=== PATIENT | female | born 1955 | race Caucasian/White ===

== ENCOUNTER → 2016-11-26 | Outpatient (CLI) | payer BC ==
--- NOTE | 2016-11-26 10:22 | US ---
EXAMINATION TYPE: US pelvic complete DATE OF EXAM: 11/26/2016 COMPARISON: NONE CLINICAL HISTORY: R10.2 PELVIC PAIN. Patient states mild discomfort on and off for years, no pain, ma rudy h/o ovarian CA TECHNIQUE: TA Date of LMP: 6+yrs ago EXAM MEASUREMENTS: Uterus: 7.7 x 5.8 x 2.3cm Endometrial Stripe: 0.4cmcm Right Ovary: 1.6 x 1.1 x 1.7cm Left Ovary: 2.1 x 1.3 x 1.4cm 1. Uterus: Anteverted probable 1.3cm left sided fibroid 2. Endometrium: wnl 3. Right Ovary: atrophic,wnl 4. Left Ovary: atrophic,wnl 5. Bilateral Adnexa: wnl 6. Posterior cul-de-sac: wnl IMPRESSION: PROBABLE FIBROID UTERUS.
== END | disposition home or self-care (01) ==
LOC: RADUSWWP 09:31
PROVIDERS: ATTEND Obstetrics & Gynecology
DX: R10.2 Pelvic and perineal pain (principal)
CPT/HCPCS: 76856

== ENCOUNTER 2017-08-22 06:40 | Day surgery (SDC) | payer BC ==
[2017-08-18 11:33] VITALS: BMI 25.7
[~2017-08-22 06:40] MED LIST: LACTATED RINGERS 1,000 ML IV SCH
[2017-08-22 06:59] VITALS: TEMP 97.9
[2017-08-22] MEDS ORDERED: LIDOCAINE 1% 20 ML VIAL (10MG/ML) FOR IV START INTRADERMA ONE (07:08)
[2017-08-22] MEDS ORDERED: PROPOFOL 10 MG/ML 20 ML VIAL IV ONE (07:34)
[2017-08-22] MEDS ORDERED: LIDOCAINE 1% INJ 10MG/ML (20 ML MDV) ONE (07:34)
--- NOTE | 2017-08-22 07:55 | P.GSHP ---
History of Present Illness H&P Date: 08/22/17 Chief Complaint: Screening colonoscopy Is a 62-year-old female referred from Dr. Fitzpatrick. Patient safe for screening colonoscopy. Her last colonoscopy 10 years ago. Past Medical History Past Medical History: No Reported History History of Any Multi-Drug Resistant Organisms: None Reported Past Surgical History: Cholecystectomy, Orthopedic Surgery, Tubal Ligation Additional Past Surgical History / Comment(s): CARPAL TUNNEL, GROWTHS IN THROAT REMOVED. Past Anesthesia/Blood Transfusion Reactions: No Reported Reaction Past Psychological History: No Psychological Hx Reported Smoking Status: Former smoker Past Alcohol Use History: Rare Additional Past Alcohol Use History / Comment(s): QUIT SMOKING 10 YRS AGO. SMOKED 30 + YRS Past Drug Use History: None Reported - Past Family History Mother Family Medical History: Cancer Additional Family Medical History / Comment(s): OVARIAN CANCER Medications and Allergies Home Medications Medication Instructions Recorded Confirmed Type Aspirin/Acetaminophen/Caffeine 1 each PO DIRECTED PRN 08/18/17 08/22/17 History [Excedrin Extra Strength Caplet] Allergies Allergy/AdvReac Type Severity Reaction Status Date / Time No Known Allergies Allergy Verified 08/18/17 11:34 Surgical - Exam Vital Signs Temp Pulse Resp BP Pulse Ox 97.9 F 91 20 125/62 100 08/22/17 06:57 08/22/17 06:57 08/22/17 06:57 08/22/17 06:57 08/22/17 06:57 - General well developed, no distress - Eyes PERRL - ENT normal pinna - Neck no masses - Respiratory normal expansion - Cardiovascular Rhythm: regular - Abdomen Abdomen: soft, non tender Assessment and Plan Assessment: We'll perform screening colonoscopy.
--- NOTE | 2017-08-22 08:06 | P.OP ---
Date of Procedure: 08/22/17 Preoperative Diagnosis: Screening colonoscopy Postoperative Diagnosis: Diverticulosis Procedure(s) Performed: Colonoscopy Anesthesia: MAC Surgeon: Brandt Shetty Pathology: none sent Condition: stable Disposition: PACU Description of Procedure: The patient's placed on the endoscopy table lateral position. She received IV sedation. The digital rectal exam was performed which revealed no abnormalities. The flexible colonoscope was then placed patient anus passed throughout the entire colon. The ileocecal valve was visually. The cecum, ascending and transverse colon appeared normal. In the descending and sigmoid colon is mild diverticular changes. Scope was then brought back the rectum and this appeared normal. Scope was withdrawn for patient.
[2017-08-22 08:13] VITALS: RESP 16
[2017-08-22 08:30] VITALS: BP 121/88; PULSE 74
== END 2017-08-22 08:57 | disposition home or self-care (01) ==
LOC: ORWHC2ENDO 06:40
PROVIDERS: ATTEND Surgery
DX: Z12.11 Encounter for screening for malignant neoplasm of colon (principal); K57.30 Diverticulosis of large intestine without perforation or abscess without bleeding; Z87.891 Personal history of nicotine dependence
CPT/HCPCS: J2001; J2704; G0121

== ENCOUNTER 2020-06-03 17:39 | Emergency (ER) | payer BC ==
[2020-06-03 17:43] VITALS: PULSE 88; RESP 18
[2020-06-03 19:15] LABS: Basophils % (A) 1 %; Eosinophils # (A) 0.1 k/uL (0-0.7); Eosinophils % (A) 1 %; HCT 35.3 % (34.0-46.0); HGB 11.8 gm/dL (11.4-16.0); Lymphocytes # (A) 1.3 k/uL (1.0-4.8); Lymphocytes % (A) 22 %; MCHC 33.3 g/dL (31.0-37.0); Mean Platelet Volume 7.3; Monocytes # (A) 0.2 k/uL (0-1.0); Monocytes % (A) 4 %; Neutrophils # (A) 4.1 k/uL (1.3-7.7); Neutrophils % (A) 71 %; Platelet Count 189 k/uL (150-450); RBC 3.92 m/uL (3.80-5.40); RDW 13.4 % (11.5-15.5); WBC 5.8 k/uL (3.8-10.6)
[2020-06-03 19:28] LABS: ALT 14 U/L (4-34); AST 22 U/L (14-36); African American GFR (CKD) >90 (>60 ml/min/1.73 sqM); Albumin 4.1 g/dL (3.5-5.0); Alkaline Phosphatase 104 U/L (38-126); Anion Gap 5 mmol/L; Blood Urea Nitrogen 14 mg/dL (7-17); Calcium 9.1 mg/dL (8.4-10.2); Carbon Dioxide 28 mmol/L (22-30); Chloride 105 mmol/L (98-107); Glucose 112 mg/dL (74-99); Magnesium 2.1 mg/dL (1.6-2.3); Non-African American GFR(CKD) >90 (>60 ml/min/1.73 sqM); Potassium 4.2 mmol/L (3.5-5.1); Sodium 138 mmol/L (137-145); Total Bilirubin 0.3 mg/dL (0.2-1.3); Total Protein 6.8 g/dL (6.3-8.2)
--- NOTE | 2020-06-03 19:46 | ED ---
Dizziness HPI - General Chief Complaint: Dizziness Stated Complaint: dizzy Time Seen by Provider: 06/03/20 19:14 Source: patient Mode of arrival: wheelchair Limitations: no limitations - History of Present Illness Initial Comments: Patient is a 65-year-old female presenting to the emergency Department with complaints of intermittent light headiness with her going on for 2 weeks. Patient states when she changes position, going from sitting to standing or bending over she feels lightheaded. Patient states she's also had a ringing in her left ear for about a month. She is also complaining of intermittent numbness in both of her arms that is also intermittent. Patient states she has not seen her doctor in many years, she takes no medications. She denies any chest pain, shortness of breath, cough, abdominal pain. She does admit to some mild nausea with lightheadedness is worse. She denies any vomiting, diarrhea. She denies any urinary discomfort, increase in frequency. She denies a headache, sinus congestion. She states she does not eat very much throughout the day, generally begins her day with a cupcake. Patient also admits that she did not drink a lot of water. She states she stopped smoking about 14 years ago, she denies any other drug use, she does admit to occasional alcohol. Patient has no further complaints at this time. Upon arrival to the ER, her total signs are stable. - Related Data Home Medications Medication Instructions Recorded Confirmed No Known Home Medications 06/03/20 06/03/20 Allergies Allergy/AdvReac Type Severity Reaction Status Date / Time No Known Allergies Allergy Verified 06/03/20 20:24 Review of Systems ROS Statement: Those systems with pertinent positive or pertinent negative responses have been documented in the HPI. ROS Other: All systems not noted in ROS Statement are negative. Past Medical History Past Medical History: No Reported History History of Any Multi-Drug Resistant Organisms: None Reported Past Surgical History: Cholecystectomy, Orthopedic Surgery, Tubal Ligation Additional Past Surgical History / Comment(s): CARPAL TUNNEL, GROWTHS IN THROAT REMOVED. Past Anesthesia/Blood Transfusion Reactions: No Reported Reaction Past Psychological History: No Psychological Hx Reported Smoking Status: Never smoker Past Alcohol Use History: Rare Past Drug Use History: None Reported - Past Family History Mother Family Medical History: Cancer Additional Family Medical History / Comment(s): OVARIAN CANCER General Exam - General Exam Comments Initial Comments: GENERAL: Patient is well-developed and well-nourished. Patient is nontoxic and in no acute distress. HEAD: Atraumatic, normocephalic. EYES: Pupils equal round and reactive to light, extraocular movements intact, sclera anicteric, conjunctiva are normal. Eyelids were unremarkable. ENT: TMs normal, nares patent, oropharynx clear without exudates. Moist mucous membranes. NECK: Normal range of motion, supple without lymphadenopathy or JVD. LUNGS: Unlabored respirations. Breath sounds clear to auscultation bilaterally and equal. No wheezes rales or rhonchi. HEART: Regular rate and rhythm without murmurs, rubs or gallops. ABDOMEN: Soft, nontender, normoactive bowel sounds. No guarding, no rebound. No masses appreciated. : Deferred MUSCULOSKELETAL: Normal extremities with adequate strength and normal range of motion, no pitting or edema. No clubbing or cyanosis. NEUROLOGICAL: Patient is alert and oriented x 3. Motor and sensory are also intact. Cranial nerves II through XII grossly intact. Symmetrical smile. Normal speech, normal gait. PSYCH: Normal mood, normal affect. SKIN: Warm, Dry, normal turgor, no rashes or lesions noted. Limitations: no limitations Course Vital Signs 06/03/20 17:41 Temperature 98.1 F Pulse Rate 88 Respiratory 18 Rate Blood Pressure 161/81 O2 Sat by Pulse 100 Oximetry EKG Findings - EKG Comments: EKG Findings:: Normal sinus rhythm with sinus arrhythmia, normal ECG, no signs of acute ischemia. Ventricular rate 76, SD interval 136, QT 368. Medical Decision Making - Medical Decision Making Patient is a 55-year-old female with multiple vague complaints including intermittent lightheadedness and dizziness for the past 2 weeks, ringing in the ears for the past month, occasional nausea. She takes no daily medications, she has not seen her PCP in years. She denies any chest pain or shortness of breath. Her vital signs are stable upon arrival. EKG shows no acute process. Her exam is unremarkable, no neuro deficits. Patient's lab work shows no acute abnormalities, urine is normal. I did offer patient a CT of her brain however patient declined, she states she just wants to go home. Patient has been asymptomatic in the ER. I also offered patient IV fluids however she is afraid of needles and did not want an IV started. Patient's vital signs remained stable. I discussed these findings with the patient. I did recommend following up with an ENT regarding the ringing in the ears, could be contributing to her lightheadedness. Patient states she does see Dr. Ulloa and will follow-up wi th him. Patient is stable for discharge. Return parameters were discussed with the patient she verbalized understanding. Case discussed with Dr. Mix. - Lab Data Result diagrams: 06/03/20 18:59 06/03/20 18:59 Lab Results 06/03/20 06/03/20 06/03/20 Range/Units 18:59 18:59 18:59 WBC 5.8 (3.8-10.6) k/uL RBC 3.92 (3.80-5.40) m/uL Hgb 11.8 (11.4-16.0) gm/dL Hct 35.3 (34.0-46.0) % MCV 90.0 (80.0-100.0) fL MCH 30.0 (25.0-35.0) pg MCHC 33.3 (31.0-37.0) g/dL RDW 13.4 (11.5-15.5) % Plt Count 189 (150-450) k/uL MPV 7.3 Neutrophils % 71 % Lymphocytes % 22 % Monocytes % 4 % Eosinophils % 1 % Basophils % 1 % Neutrophils # 4.1 (1.3-7.7) k/uL Lymphocytes # 1.3 (1.0-4.8) k/uL Monocytes # 0.2 (0-1.0) k/uL Eosinophils # 0.1 (0-0.7) k/uL Basophils # 0.0 (0-0.2) k/uL Sodium 138 (137-145) mmol/L Potassium 4.2 (3.5-5.1) mmol/L Chloride 105 (98-107) mmol/L Carbon Dioxide 28 (22-30) mmol/L Anion Gap 5 mmol/L BUN 14 (7-17) mg/dL Creatinine 0.70 (0.52-1.04) mg/dL Est GFR (CKD-EPI)AfAm >90 (>60 ml/min/1.73 sqM) Est GFR (CKD-EPI)NonAf >90 (>60 ml/min/1.73 sqM) Glucose 112 H (74-99) mg/dL Calcium 9.1 (8.4-10.2) mg/dL Magnesium 2.1 (1.6-2.3) mg/dL Total Bilirubin 0.3 (0.2-1.3) mg/dL AST 22 (14-36) U/L ALT 14 (4-34) U/L Alkaline Phosphatase 104 (38-126) U/L Troponin I <0.012 (0.000-0.034) ng/mL Total Protein 6.8 (6.3-8.2) g/dL Albumin 4.1 (3.5-5.0) g/dL Urine Color Urine Appearance (Clear) Urine pH (5.0-8.0) Ur Specific [place] (1.001-1.035) Urine Protein (Negative) Urine Glucose (UA) (Negative) Urine Ketones (Negative) Urine Blood (Negative) Urine Nitrite (Negative) Urine Bilirubin (Negative) Urine Urobilinogen (<2.0) mg/dL Ur Leukocyte Esterase (Negative) Urine RBC (0-5) /hpf Urine WBC (0-5) /hpf Ur Squamous Epith Cells (0-4) /hpf Amorphous Sediment (None) /hpf Urine Mucus (None) /hpf 06/03/20 Range/Units 20:15 WBC (3.8-10.6) k/uL RBC (3.80-5.40) m/uL Hgb (11.4-16.0) gm/dL Hct (34.0-46.0) % MCV (80.0-100.0) fL MCH (25.0-35.0) pg MCHC (31.0-37.0) g/dL RDW (11.5-15.5) % Plt Count (150-450) k/uL MPV Neutrophils % % Lymphocytes % % Monocytes % % Eosinophils % % Basophils % % Neutrophils # (1.3-7.7) k/uL Lymphocytes # (1.0-4.8) k/uL Monocytes # (0-1.0) k/uL Eosinophils # (0-0.7) k/uL Basophils # (0-0.2) k/uL Sodium (137-145) mmol/L Potassium (3.5-5.1) mmol/L Chloride (98-107) mmol/L Carbon Dioxide (22-30) mmol/L Anion Gap mmol/L BUN (7-17) mg/dL Creatinine (0.52-1.04) mg/dL Est GFR (CKD-EPI)AfAm (>60 ml/min/1.73 sqM) Est GFR (CKD-EPI)NonAf (>60 ml/min/1.73 sqM) Glucose (74-99) mg/dL Calcium (8.4-10.2) mg/dL Magnesium (1.6-2.3) mg/dL Total Bilirubin (0.2-1.3) mg/dL AST (14-36) U/L ALT (4-34) U/L Alkaline Phosphatase (38-126) U/L Troponin I (0.000-0.034) ng/mL Total Protein (6.3-8.2) g/dL Albumin (3.5-5.0) g/dL Urine Color Yellow Urine Appearance Turbid H (Clear) Urine pH 8.0 (5.0-8.0) Ur Specific [place] 1.017 (1.001-1.035) Urine Protein Negative (Negative) Urine Glucose (UA) Negative (Negative) Urine Ketones 1+ H (Negative) Urine Blood Negative (Negative) Urine Nitrite Negative (Negative) Urine Bilirubin Negative (Negative) Urine Urobilinogen <2.0 (<2.0) mg/dL Ur Leukocyte Esterase Trace H (Negative) Urine RBC 2 (0-5) /hpf Urine WBC 2 (0-5) /hpf Ur Squamous Epith Cells 2 (0-4) /hpf Amorphous Sediment Occasional H (None) /hpf Urine Mucus Rare H (None) /hpf Disposition Clinical Impression: Dehydration, Light headedness, Tinnitus Disposition: HOME SELF-CARE Condition: Stable Instructions (If sedation given, give patient instructions): Dehydration (ED) Additional Instructions: Please return to the Emergency Department if symptoms worsen or any other concerns. Recommend increasing water intake throughout the day, eating every 2-3 hours. Recommend trial of Claritin or Zyrtec for bradycardia in the ears. Follow up with ENT as symptoms persist. Is patient prescribed a controlled substance at d/c from ED?: No Referrals: Jaspreet Fitzpatrick, [Primary Care Provider] - 1-2 days
[2020-06-03 20:34] LABS: Amorphous Sediment,Urine Occasional /hpf; Appearance,Urine Turbid (Clear); Bilirubin,Urine Negative (Negative); Blood,Urine Negative (Negative); Color,Urine Yellow; Glucose,Urine (UA) Negative (Negative); Ketones,Urine 1+ (Negative); Leukocyte Esterase,Urine Trace (Negative); Mucus,Urine Rare /hpf; Nitrite,Urine Negative (Negative); Protein,Urine Negative (Negative); RBC,Urine 2 /hpf (0-5); Specific Gravity,Urine 1.017 (1.001-1.035); Squamous Epithelial Cell,Urine 2 /hpf (0-4); Urobilinogen,Urine <2.0 mg/dL (<2.0); WBC,Urine 2 /hpf (0-5)
[2020-06-03 21:48] VITALS: BP 158/80; TEMP 97.9
== END 2020-06-03 21:48 | disposition home or self-care (01) ==
LOC: EC 17:39
DX: E86.0 Dehydration (principal); H93.13 Tinnitus, bilateral; R42 Dizziness and giddiness
CPT/HCPCS: 36415; 80053; 81001; 83735; 84484; 85025; 93005; 99284

== ENCOUNTER → 2020-08-15 | Outpatient (CLI) | payer BC ==
[2020-08-15 15:15] VITALS: BP 146/83; PULSE 67; RESP 18; TEMP 98.4
--- NOTE | 2020-08-15 16:06 | P.GSHP ---
History of Present Illness H&P Date: 08/15/20 Chief Complaint: Abnormal mammogram both breast Elizabeth is a 65-year-old white female [place] [id number]. This revealed several vague asymmetric densities in the right breast as well as 2 areas in the left breast. A diagnostic left breast mammogram was then performed which revealed dispersion of the density in the outer margin of the left breast as well as in the margin of the left breast a persistent vague density noted. An ultrasound was then performed and no sizable solid or cystic nodule was identified. However there was felt to be persistent mammographic changes and a stereotactic core biopsy was recommended. The pat ient does not note any lumps masses or nodules in either breast. She has not noted any nipple discharge or skin changes. She has never had any breast biopsies in the past. She has not had any trauma or infection the breast. She is not complaining of any pain in the breast. Caffeine: One cup of coffee per day Nicotine: Negative shakila-bromine: rare Family history: mother: ovarian cancer at 78 maternal aunt: breast cancer Hormonal History: menarche: 17 , 1 stillborn, 1 AB, breast fed: no, age at : 18 menopause: 52 BCP: 3 years hormones: no Surgical history: Gallbladder Carpal tunnel Tubal Growth removed from arm lipoma growth removed from throat off each vocal cord Medical History: lipoma/ lump left supraclavicular area Social History: nicotine: none alcohol: rare drugs: none - Constitutional Constitutional: Reports sweats - EENT Eyes: denies blurred vision, denies pain Ears: left: tinnitus, deny: decreased hearing Ears, nose, mouth and throat: Reports headache - Breasts Breasts: bilateral: as per HPI - Cardiovascular Cardiovascular: Denies chest pain, Denies shortness of breath - Respiratory Respiratory: Denies cough, Denies 7 - Gastrointestinal Gastrointestinal: Denies abdominal pain, Denies diarrhea, Denies nausea, Denies vomiting - Genitourinary (Female) Genitourinary: Denies dysuria, Denies hematuria - Menstruation Menstruation: Reports postmenopausal - Musculoskeletal Comment: lump left supraclavicular area Musculoskeletal: Reports myalgias - Integumentary Integumentary: Denies pruritus, Denies rash - Neurological Neurological: Reports numbness, Denies weakness - Psychiatric Psychiatric: Denies anxiety, Denies depression - Endocrine Endocrine: Reports weight change, Denies fatigue - Hematologic/Lymphatic Comment: none - Allergic/Immunologic Allergic/Immunologic: Reports as per HPI Past Medical History Past Medical History: No Reported History History of Any Multi-Drug Resistant Organisms: None Reported Past Surgical History: Cholecystectomy, Orthopedic Surgery, Tubal Ligation Additional Past Surgical History / Comment(s): CARPAL TUNNEL, GROWTHS IN THROAT REMOVED. Growths on arm removed Past Anesthesia/Blood Transfusion Reactions: No Reported Reaction Past Psychological History: No Psychological Hx Reported Smoking Status: Former smoker Past Alcohol Use History: Rare Additional Past Alcohol Use History / Comment(s): QUIT SMOKING 14 YRS AGO. SMOKED 30 + YRS Past Drug Use History: None Reported - Past Family History Mother Family Medical History: Cancer Additional Family Medical History / Comment(s): OVARIAN CANCER Medications and Allergies Home Medications Medication Instructions Recorded Confirmed Type Aspirin/Acetaminophen/Caffeine 1 each PO DAILY PRN 08/15/20 08/15/20 History [Excedrin Extra Strength Caplet] Allergies Allergy/AdvReac Type Severity Reaction Status Date / Time No Known Allergies Allergy Verified 08/15/20 15:11 Surgical - Exam Vital Signs Temp Pulse Resp BP Pulse Ox 98.4 F 67 18 146/83 97 08/15/20 15:12 08/15/20 15:12 08/15/20 15:12 08/15/20 15:12 08/15/20 15:12 BMI 27 - General well developed, well nourished, no distress - Eyes normal ocular movement - ENT no hearing loss, no congestion - Neck no masses, trachea midline - Respiratory normal expansion, normal respiratory effort - Cardiovascular Rhythm: regular - Abdomen Abdomen: soft, non tender, no guarding, no rigid, no rebound - Integumentary normal turgor - Neurologic no disoriented, no combative - Musculoskeletal normal gait - Psychiatric oriented to time, oriented to person, oriented to place, speech is normal, memory intact breast exam: BRA: 38C inspection: Right breast slightly larger than left breast, bilateral grade 3 ptosis Palpation: Right breast: Multiple position of exam fibrocystic changes, no dominant masses or nodules of concern Right axilla: No adenopathy of concern Left breast: Multi-positional exam fibrocystic changes no dominant masses or nodules of concern Left axilla: No adenopathy of concern Patient has a left supraclavicular soft tissue fullness probable lipoma approximately 5 x 4 cm in size and is freely mobile The patient has a left temporal soft tissue fullness probable lipoma approximately 3 x 2 cm in size freely mobile Results Mammogram and ultrasound results reviewed with Dr. Slater from radiology Assessment and Plan Assessment: Impression: 1. Fibrocystic breast changes 2. Family history of cancer 3. Abnormal mammograms 4. Soft tissue mass left supraclavicular area and left oriental orthodox Plan: 1. Ultrasound left oriental orthodox and left supraclavicular mass 2. Right breast diagnostic mammogram 3. Stereotactic core biopsy left breast Risk and benefits of procedure discussed with the patient. She and her understand and wish to proceed. Risks include but are not limited to bleeding, infection, reaction to the anesthetic. They also understand that the lesion may not be seen when is attempted to be biopsied and this would result in 6 month follow-up mammogram. Ultrasound of the left oriental orthodox and left supraclavicular area will be done to evaluate these areas. CC: Dr. Fitzpatrick, Dr. Jamil Encounter 30 minutes time spent in reviewing medical records, physical examination, and counseling.
== END | disposition home or self-care (01) ==
LOC: WWCWWP 14:59
PROVIDERS: ATTEND Surgery
DX: N60.11 Diffuse cystic mastopathy of right breast (principal); N60.12 Diffuse cystic mastopathy of left breast; R92.8 Other abnormal and inconclusive findings on diagnostic imaging of breast; Z87.891 Personal history of nicotine dependence

== ENCOUNTER → 2020-08-20 | Outpatient (CLI) | payer BC ==
--- NOTE | 2020-08-20 13:14 | MM ---
Reason for exam: additional evaluation requested from prior study. Last mammogram was performed 17 years and 6 months ago. History: Patient is postmenopausal. Family history of breast cancer in maternal aunt. Physical Findings: Nurse did not find any significant physical abnormalities on exam. MG Diagnostic Mammo RT w CAD CC, MLO, ML, spot compression CC, and spot compression MLO view(s) were taken of the right breast. Prior study comparison: July 16, 2020, mammogram, performed at [facility]. July 15, 2020, mammogram, performed at [facility]. There are scattered fibroglandular densities. No persisting abnormality on additional views of the right breast. Right breast BIRADS 1. These results were verbally communicated with the patient and result sheet given to the patient on 08/20/20. ASSESSMENT: Suspicious, BI-RAD 4 RECOMMENDATION: Stereotactic core biopsy. (left breast) Already scheduled for left biopsy biopsy per recent left work up.
== END | disposition home or self-care (01) ==
LOC: RADMAMWWP 10:40
PROVIDERS: ATTEND Surgery
DX: R92.8 Other abnormal and inconclusive findings on diagnostic imaging of breast (principal)
CPT/HCPCS: 77065

== ENCOUNTER → 2020-08-22 | Day surgery (SDC) | payer BC ==
[2020-08-22 07:18] VITALS: BP 137/87; PULSE 77; RESP 16; TEMP 98.2
--- NOTE | 2020-08-22 08:42 | P.PN ---
Progress Note - Text Progress Note Date: 08/22/20 Diagnosis: Radiographic abnormality bilateral breast Elizabeth is a 65-year-old white female who was scheduled for a left breast stereotactic core biopsy for a vague density seen on the CC view. This had been reviewed with radiology previously and they felt that this area should be biopsied via stereo biopsy if possible. Additionally there was some questionable changes in the right breast on her screening mammogram; diagnostic mammogram of the right breast was performed on . These results have been reviewed today. No lesions of concern were identified in the right breast. The patient presented today for attempted stereo biopsy of the left breast. She was seen preprocedure and the left breast was marked. She was positioned in the prone position on the lo-rad table and the area of concern could not be identified on the sheep killer film. The findings were reviewed with radiology and it was felt that we could not sample the area that was originally of concern in the left breast because it could not be visualized. Therefore a left breast mammogram in 6 months was recommended. This was explained to the patient. This is going to be scheduled for 6 month follow-up. Impression: Radiographic abnormality bilateral breast, right breast felt to be benign BIRADS 1 left breast attempted stereo biopsy unable to perform secondary to an nonvisualization of the lesion Plan: Left breast mammogram in 6 months with physician exam at that time CC: Dr. Loulou Mirza Encounter 10 minutes, time spent reviewing radiographs, medical records and counseling.
--- NOTE | 2020-08-22 17:17 | MM ---
EXAMINATION TYPE: MG discontinued stereo core LT DATE OF EXAM: 08/22/2020 COMPARISON: Mammogram 08/20/2020, 07/16/2020 CLINICAL HISTORY: Abnormal mammogram TECHNIQUE: Stereotactic guided core biopsy of left breast. FINDINGS: Patient was brought to the stereotactic core suite. Patient was placed on the table in the prone posi tion. However the focal asymmetry cannot be localized with attempted positioning from multiple angles . The procedure was terminated. Patient was notified and the case discussed the referring physician. IMPRESSION: Procedure terminated prior to skin incision. Recommendations: 1. Patient should follow-up two-view mammogram in 6 months for reevaluation of the left breast. 2. Patient should continue monthly self breast exam. 3. Clinical management of any suspicious palpable regions.
== END ==
LOC: RADMAMWWP 07:03
PROVIDERS: ATTEND Surgery
DX: R92.8 Other abnormal and inconclusive findings on diagnostic imaging of breast (principal); Z53.8 Procedure and treatment not carried out for other reasons

== ENCOUNTER → 2020-08-28 | Outpatient (CLI) | payer BC ==
--- NOTE | 2020-08-29 09:34 | US ---
EXAMINATION TYPE: US thyroid st tissue head/neck DATE OF EXAM: 08/28/2020 COMPARISON: NONE CLINICAL HISTORY: R22.0 LOCALIZED SWELLING, MASS AND LUMP. lump left evangelical and left neck/clavicle scanned area of concern left clavicle/neck, isoechoic area = 4.9 x 1.8 x 4.8cm. scanned area of conc spike left evangelical, isoechoic area = 4.0 x 1.0 x 4.3cm. possible lipomas IMPRESSION: Findings are indeterminate but may represent lipoma, fibroma, alternate imaging with MRI could be performed with overlying markers for additional evaluation.
== END ==
LOC: RADUSWWP 16:36
PROVIDERS: ATTEND Surgery
DX: R22.1 Localized swelling, mass and lump, neck (principal)
CPT/HCPCS: 76536

== ENCOUNTER → 2022-03-31 | Outpatient (CLI) | payer BC ==
--- NOTE | 2022-04-01 09:24 | XR ---
EXAMINATION TYPE: XR chest 2V DATE OF EXAM: 03/31/2022 COMPARISON: NONE TECHNIQUE: PA and lateral views submitted. HISTORY: Palpable abnormality FINDINGS: The lungs are clear and there is no pneumothorax, pleural effusion, or focal pneumonia. Linear nieto ges left lung base. Hyperinflation of the lungs or liver asthma or COPD. Hypertrophic and degenerativ e changes in the spine. Postsurgical change involving abdomen. There is area of asymmetric low attenu ation overlying the left clavicle. IMPRESSION: 1. No acute process. There is an area of fat attenuation overlying the left apical. Recommend ultraso und to assess for possible mass including lipoma
== END | disposition home or self-care (01) ==
LOC: RADXRMAIN 17:20
PROVIDERS: ATTEND Family Medicine
DX: Z12.39 Encounter for other screening for malignant neoplasm of breast (principal); R22.30 Localized swelling, mass and lump, unspecified upper limb
CPT/HCPCS: 71046

== ENCOUNTER → 2022-04-26 | Outpatient (CLI) | payer BC ==
--- NOTE | 2022-04-26 08:46 | MM ---
Reason for Exam: Additional evaluation requested from prior study. Last mammogram was performed 1 year(s) and 9 month(s) ago. Patient History: Menarche at age 15. First Full-Term at age 18. Postmenopausal. 08/22/2020, MG discontinued stereo core LT on the left side. Maternal aunt had breast cancer. Risk Values: Rebecca 5 year model risk: 1.2%. NCI Lifetime model risk: 4.6%. Prior Study Comparison: 02/05/2003 Bilateral Screening Mammogram, [facility]. 02/11/2003 Right Special View Mammogram, [facility]. 07/15/2020 Screening Mammogram, [facility]. 07/16/2020 Left MG work up mamm w CAD LT - 2, [facility]. 07/16/2020 Left US breast workup limited LT, [facility]. 07/16/2020 Screening Mammogram, [facility]. 08/20/2020 Right Diagnostic Mammogram, [facility]. Tissue Density: There are scattered fibroglandular densities. Findings: Analyzed By CAD. Bilateral areas of asymmetric density remain unchanged. Nodularity upper-outer quadrant left breast middle depth smaller than prior exam. No significant change from prior exams. Overall Assessment: Benign, BI-RAD 2 Management: Screening Mammogram of both breasts in 1 year. 1. Patient should continue monthly self breast exams. 2. A clinical breast exam by your physician is recommended on an annual basis. 3. This exam should not preclude additional follow-up of suspicious palpable abnormalities. Electronically signed and approved by: Nina Gonzalez M.D. Radiologist
== END | disposition home or self-care (01) ==
LOC: RADMAMWWP 06:59
PROVIDERS: ATTEND Family Medicine
DX: N63.21 Unspecified lump in the left breast, upper outer quadrant (principal); Z78.0 Asymptomatic menopausal state; Z80.3 Family history of malignant neoplasm of breast
CPT/HCPCS: 77066

== ENCOUNTER → 2022-04-28 | Outpatient (CLI) | payer BC ==
--- NOTE | 2022-04-29 09:17 | US ---
EXAMINATION TYPE: US st tissue neck DATE OF EXAM: 04/28/2022 COMPARISON: 08/28/2020 CLINICAL HISTORY: 67-year-old female R59.0 localized enlarged lymph nodes. Supraclavicular lymphadeno edwin. Technique: Multiple sonographic images left supraclavicular region at the patient's palpable site. FINDINGS: Student Life Advisor notes: Scanned left supraclavicular area of patient's concern/palpable area. There is an oval circumscribed isoechoic area seen: 4.5 x 4.9 x 1.7 cm. Overall similar appearance compared to 08/28/2020 where it measured 4.9 x 4.8 x 1.8 cm. IMPRESSION: Compared to 08/28/2020, the patient's left supraclavicular palpable site corresponds to a similar 4.9 x 4.5 x 1.7 cm oval isoechoic mass. A fatty tumor, specifically lipoma is suspected. If any growth is noted or the area becomes symptomatic, surgical evaluation can be considered.
== END | disposition home or self-care (01) ==
LOC: RADUSWWP 16:30
PROVIDERS: ATTEND Family Medicine
DX: R59.0 Localized enlarged lymph nodes (principal)
CPT/HCPCS: 76536

== ENCOUNTER → 2022-12-06 | Outpatient (CLI) | payer MEDICARE ==
[2022-12-07 02:01] LABS: ALT 19 U/L (8-44); AST 15 U/L (13-35); Albumin 4.2 d/dL (3.8-4.9); Albumin/Globulin Ratio 1.75 Ratio (1.60-3.17); Alkaline Phosphatase 144 U/L (41-126); BUN/Creat Ratio 21.75 Ratio (12.00-20.00); Blood Urea Nitrogen 17.4 mg/dL (9.0-27.0); Calcium 9.4 mg/dL (8.7-10.3); Carbon Dioxide 25.5 mmol/L (21.6-31.8); Chloride 106 mmol/L (96-109); Ferritin 34.4 ng/mL (10.0-291.0); Globulin 2.4 d/dL (1.6-3.3); Glucose 113 mg/dL (70-110); Iron 53 UG/DL (50-170); Sodium 145 mmol/L (135-145); Total Bilirubin 0.2 mg/dL (0.3-1.2); Total Iron Binding Capacity 414 UG/DL (228-460); Total Protein 6.6 d/dL (6.2-8.2)
[2022-12-07 02:17] LABS: Basophils # (A) 0.04 X 10*3/uL (0.00-0.10); Basophils % (A) 0.6 %; Eosinophils # (A) 0.11 X 10*3/uL (0.04-0.35); Eosinophils % (A) 1.7 %; HCT 37.4 % (37.2-46.3); HGB 11.7 d/dL (12.0-15.0); Lymphocytes # (A) 1.71 X 10*3/uL (0.90-5.00); Lymphocytes % (A) 27.1 %; MCH 29.1 pg (27.0-32.0); MCHC 31.3 d/dL (32.0-37.0); Monocytes # (A) 0.32 X 10*3/uL (0.20-1.00); Monocytes % (A) 5.1 %; NRBC Per 100 WBC 0 X 10*3/uL (0.00-0.01); Neutrophils # (A) 4.11 X 10*3/uL (1.80-7.70); Neutrophils % (A) 65.3 %; Platelet Count 195 X 10*3/uL (140-440); RBC 4.02 X 10*6/uL (4.10-5.20); RDW 13.5 % (11.5-14.5)
[2022-12-07 05:17] LABS: HIV 2 AB Non-Reactive (Non-Reactive); HIV AB P24 Non-Reactive (Non-Reactive); HIV P24 AG Non-Reactive (Non-Reactive)
== END | disposition home or self-care (01) ==
LOC: LABWHC1 15:13
PROVIDERS: ATTEND Family Medicine
DX: Z11.4 Encounter for screening for human immunodeficiency virus [HIV] (principal); D50.9 Iron deficiency anemia, unspecified; R73.9 Hyperglycemia, unspecified
CPT/HCPCS: 36415; 80053; 82728; 83036; 83540; 83550; 85025; 85045; 87390

== ENCOUNTER → 2023-04-29 | Outpatient (CLI) | payer MEDICARE ==
--- NOTE | 2023-04-29 09:33 | US ---
EXAMINATION TYPE: US screening aorta DATE OF EXAM: 04/29/2023 COMPARISON: NONE CLINICAL INDICATION: Female, 68 years old with history of Z13.6; Screening for AAA TECHNIQUE: Multiple sonographic images of the abdominal aorta are obtained. FINDINGS: EXAM MEASUREMENTS: Abdominal Aorta: Proximal: 2.4 x 2.0 cm Mid: 1.8 x 2.2 cm Distal: 1.3 x 1.9 cm Bifurcation: R = 1.0 x 1.1 cm L = 1.7 x 1.2 cm COLLAR RUNNER NOTES: unremarkable exam IMPRESSION: 1. No abdominal aortic aneurysm screening ultrasound. MTDD
--- NOTE | 2023-04-29 20:29 | BD ---
EXAMINATION TYPE: Axial Bone Density DATE OF EXAM: 04/29/2023 CLINICAL HISTORY: 68 years old Female. ICD-10 CODE: Z78.0 Height: 63.5 Weight: 157 FRAX RISK QUESTIONS: Current Tobacco Use: quit 14 yrs ago RISK FACTORS HISTORY OF: Postmenopausal woman: YES, 53 YRS Hyperparathyroidism: NO Adrenal Insufficiency: no MEDICATIONS: Additional Medications: vit d and multivitamin only Additional History: nothing to note here EXAM MEASUREMENTS: Bone mineral densitometry was performed using the [employer] System. Bone mineral density as measured about the Lumbar spine is: ----- L1-L4(G/cm2): 1.324 T Score Values are as follows: ----- L1: -0.1 ----- L2: 0.8 ----- L3: 2.4 ----- L4: 1.3 ----- L1-L4: 1.2 Z Score Values are as follows: ----- L1: 1.3 ----- L2: 2.2 ----- L3: 3.8 ----- L4: 2.7 ----- L1-L4: 2.6 Bone mineral density is her first dexa at [facility]. Bone mineral density about the R hip (g/cm2): 0.959 Bone mineral density about the L hip (g/cm2): 0.967 T Score values are as follows: -----R Neck: -1.1 -----L Neck: -1.0 -----R Total: -0.4 -----L Total: -0.3 Z Score values are as follows: -----R Neck: 0.3 -----L Neck: 0.4 -----R Total: 0.7 -----L Total: 0.8 Bone mineral density is her first bone density study at [facility]. FRAX%s: The graph provided illustrates a 8.2% chance for a major osteoporotic fx and a 0.7% chance fo r the hips probability for fx in 10 years time. IMPRESSION: Osteopenia (T Score between -2.5 and -1). There is slightly increased risk of fracture and the patient may be considered for treatment. Re-Screen 2-5 years. NOTE: T-SCORE=SD OF THE YOUNG ADULT MEAN.
--- NOTE | 2023-05-02 16:06 | MM ---
Reason for Exam: Screening (asymptomatic). Last mammogram was performed 1 year(s) and 1 month(s) ago. Patient History: Menarche at age 15. First Full-Term at age 18. Postmenopausal. 08/22/2020, MG discontinued stereo core LT on the left side. Maternal aunt had breast cancer. Risk Values: Rebecca 5 year model risk: 1.2%. NCI Lifetime model risk: 4.4%. Prior Study Comparison: 07/16/2020 Left MG work up mamm w CAD LT - 2, [facility]. 08/20/2020 Right Diagnostic Mammogram, [facility]. 04/26/2022 Bilateral MG diagnostic mammo w CAD EDWARD, [facility]. Tissue Density: There are scattered fibroglandular densities. Findings: Analyzed By CAD. Pattern appears symmetrical and stable. No significant interval change is evident. No suspicious groups of microcalcifications, spiculated or lobular masses, architectural distortion or other secondary signs of malignancy are mammographically apparent. Overall Assessment: Benign, BI-RAD 2 Management: Screening Mammogram of both breasts in 1 year. A negative mammogram report should not preclude additional follow up of suspicious palpable abnormalities. Patient should continue monthly self breast exam. A clinical breast exam by your physician is recommended on an annual basis and results should be correlated with mammographic findings. Electronically signed and approved by: Edgard Slater D.O. Radiologis
== END | disposition home or self-care (01) ==
LOC: RADUSWWP 08:52
PROVIDERS: ATTEND Family Medicine
DX: Z12.31 Encounter for screening mammogram for malignant neoplasm of breast (principal); Z13.6 Encounter for screening for cardiovascular disorders; M85.851 Other specified disorders of bone density and structure, right thigh; Z78.0 Asymptomatic menopausal state; Z80.3 Family history of malignant neoplasm of breast
CPT/HCPCS: 76706; 77063; 77067; 77080; 93979

== ENCOUNTER → 2023-06-15 | Outpatient (CLI) | payer MEDICARE ==
[2023-06-15 11:25] LABS: HCT 36.5 % (37.2-46.3); HGB 11.3 g/dL (12.0-15.0); MCH 28.4 pg (27.0-32.0); MCV 91.7 FL (80.0-97.0); Mean Platelet Volume 10.2 FL (9.5-12.2); NRBC Per 100 WBC 0 X 10*3/uL (0.00-0.01); Platelet Count 212 X 10*3/uL (140-440); RBC 3.98 X 10*6/uL (4.10-5.20); RDW 13.6 % (11.5-14.5); WBC 6.73 X 10*3/uL (4.50-10.00)
[2023-06-15 11:26] LABS: Basophils # (A) 0.03 X 10*3/uL (0.00-0.10); Basophils % (A) 0.4 %; Eosinophils # (A) 0.11 X 10*3/uL (0.04-0.35); Eosinophils % (A) 1.6 %; Lymphocytes # (A) 1.58 X 10*3/uL (0.90-5.00); Lymphocytes % (A) 23.5 %; Monocytes # (A) 0.43 X 10*3/uL (0.20-1.00); Monocytes % (A) 6.4 %; Neutrophils # (A) 4.55 X 10*3/uL (1.80-7.70); Neutrophils % (A) 67.7 %
[2023-06-15 11:52] LABS: ALT 29 U/L (8-44); AST 22 U/L (13-35); Albumin 4.1 g/dL (3.8-4.9); Albumin/Globulin Ratio 1.86 Ratio (1.60-3.17); Alkaline Phosphatase 138 U/L (41-126); Blood Urea Nitrogen 11.2 mg/dL (9.0-27.0); Calcium 9.3 mg/dL (8.7-10.3); Carbon Dioxide 26.8 mmol/L (21.6-31.8); Chloride 104 mmol/L (96-109); Chol/HDL Ratio 3.07 Ratio; Globulin 2.2 g/dL (1.6-3.3); Glucose 116 mg/dL (70-110); LDL Cholesterol,Calculated 63.4 mg/dL (0.0-131.0); Potassium 4.4 mmol/L (3.5-5.5); Sodium 140 mmol/L (135-145); Total Bilirubin 0.4 mg/dL (0.3-1.2); Total Protein 6.3 g/dL (6.2-8.2)
== END | disposition home or self-care (01) ==
LOC: LABWHC1 06:57
PROVIDERS: ATTEND Family Medicine
DX: D64.9 Anemia, unspecified (principal)
CPT/HCPCS: 36415; 80053; 80061; 82306; 83036; 84439; 84443; 85025

== ENCOUNTER → 2024-09-07 | Outpatient (CLI) | payer MEDICARE ==
--- NOTE | 2024-09-07 10:14 | MM ---
Reason for Exam: Screening (asymptomatic). Last mammogram was performed 1 year(s) and 4 month(s) ago. Patient History: Menarche at age 15. First Full-Term at age 18. Postmenopausal. 08/22/2020, MG discontinued stereo core LT on the left side. Maternal aunt had breast cancer, age 70. Risk Values: Rebecca 5 year model risk: 1.2%. NCI Lifetime model risk: 4.2%. Prior Study Comparison: 08/20/2020 Right Diagnostic Mammogram, [facility]. 04/26/2022 Bilateral MG diagnostic mammo w CAD EDWARD, [facility]. 04/29/2023 Bilateral MG 3D screening mammo w/cad, [facility]. Tissue Density: The breasts are heterogeneously dense, which may obscure small masses. Findings: Analyzed By CAD. There is no suspicious group of microcalcifications or new suspicious mass in either breast. Overall Assessment: Negative, BI-RAD 1 Management: Screening Mammogram of both breasts in 1 year. . Patient should continue monthly self-breast exams. A clinical breast exam by your physician is recommended on an annual basis. This exam should not preclude additional follow-up of suspicious palpable abnormalities. Note on Rebecca scores and lifetime risk: 1. A Rebecca score greater than 3% is considered moderate risk. If this is the case, consider specialist referral to assess eligibility for a risk reducing agent. 2. If overall lifetime risk for the development of breast cancer is 20% or higher, the patient may qualify for future screening with alternating mammogram and breast MRI. [facility], , 09/07/2024 10:11 AM. Electronically signed and approved by: Apolinar Alcala M.D. Radiologis
== END | disposition home or self-care (01) ==
LOC: RADMAMWWP 08:55
PROVIDERS: ATTEND Family Medicine
DX: Z12.31 Encounter for screening mammogram for malignant neoplasm of breast (principal); R92.333 Mammographic heterogeneous density, bilateral breasts; Z78.0 Asymptomatic menopausal state; Z80.3 Family history of malignant neoplasm of breast
CPT/HCPCS: 77063; 77067